=== PATIENT | male | born 1950 | race Caucasian/White ===

== ENCOUNTER → 2018-01-15 | Outpatient (CLI) | payer OTHER | LOC: FIMAGING 15:04 | PROVIDERS: ATTEND Nurse Practitioner | DX: R22.32 Localized swelling, mass and lump, left upper limb (principal); M79.632 Pain in left forearm; C90.01 Multiple myeloma in remission ==

== ENCOUNTER 2018-04-18 13:09 | Inpatient (IN) | payer OTHER ==
--- NOTE | 2018-04-18 13:19 | EDPHY ---
H & P Time Seen by Provider: 04/18/18 13:14 HPI/ROS: Chief complaint. Difficulty breathing HPI. 67-year-old male presents emergency department with fever chills and shortness of breath. He had chemo therapy about 1 week ago for multiple myeloma and at that time had tachycardia and low pulse oximetry. For the last several days he has had productive cough. Fever today to 102 degrees. Some shortness of breath. He lives alone and denies exposure to Infectious Disease. No chest discomfort. No abdominal pain. No unusual leg pain or swelling. No urinary symptoms ROS 10 systems were reviewed and negative with the exception of the elements mentioned in the history of present illness Past Medical/Surgical History: Multiple myeloma Social History: , lives alone, nonsmoker, no alcohol Smoking Status: Never smoked Physical Exam: General Appearance: Alert well-developed male mild distress vital signs show temp 37.5 degrees Eyes: Pupils equal and round no pallor or injection. ENT, pharynx injected without exudate Respiratory: No retractions. Mild inspiratory expiratory rhonchi Cardiovascular: Regular rate and rhythm. Gastrointestinal: Abdomen is soft and nontender, no masses, bowel sounds normal. Neurological: Awake and alert, sensory and motor exams grossly normal. Skin: Warm and dry, no rashes. Musculoskeletal: Neck is supple nontender. Extremities symmetrical, full range of motion. Psychiatric: Patient is oriented X 3, there is no agitation. Constitutional: Initial Vital Signs Temperature (C) 37.5 C 04/18/18 13:19 Heart Rate 92 04/18/18 13:19 Respiratory Rate 20 04/18/18 13:19 Blood Pressure 129/70 H 04/18/18 13:19 O2 Sat (%) 93 04/18/18 13:19 O2 Delivery Mode Room Air Allergies/Adverse Reactions: No Known Allergies Allergy (Unverified 04/05/13 08:46) Home Medications: Medication Instructions Recorded Acyclovir [Zovirax] 200 mg PO HS 01/24/13 Ascorbic Acid [Vitamin C 500 mg 500 mg PO DAILY@119901/24/13 (OTC)] Calcium Carbonate/Vitamin D3 500 mg PO DAILY@119901/24/13 [Calcium 500 + D Tablet] Multivitamins [Tab-A-Rosangela] 1 each PO DAILY@119901/24/13 [place]-3 Fatty Acids [Fish Oil 1000 1,000 mg PO DAILY@119913 mg (OTC)] Pantoprazole Sodium [Protonix 40mg 40 mg PO DAILY 01/24/13 (RX)] Aspirin [Aspirin 81mg (OTC)] 81 mg PO DAILY 02/12/13 Acyclovir [Zovirax] 800 mg PO 5XD #35 tab 11/04/13 Carfilzomib 04/18/18 Medical Decision Making - Diagnostics EKG Interpretation: EKG interpreted by me shows normal sinus rhythm normal interval. Normal axis. No evidence of old inferior ND with Q-waves lead 3. Anterior T-wave changes. No significant ST elevation or depression. No arrhythmia. Rate is 83 Imaging Results: Chest x-ray somewhat difficult to read but I believe the patient has pneumonia. Consistent with clinical symptoms Procedures: IV normal saline. Septic workup ED Course/Re-evaluation: 2:50 p.m. patient's temperature now 39.5. Blood pressure 105/49. Patient receiving 2nd L of fluid. Current blood pressure 96/72. Patient and I discussed treatment plan including recommendation for admission. He expresses understanding and agreement I consulted discussed case with Dr. Hassan who agrees to the admission Differential Diagnosis: Patient likely has pneumonia. His lactate is normal. Because of the recent chemotherapy and multiple myeloma his white blood cell count is quite low. Plan is admission - Data Points Laboratory Results: Laboratory Results 04/18/18 13:37 04/18/18 13:37 04/18/18 04/18/18 04/18/18 14:16 14:03 14:03 WBC RBC Hgb Hct MCV MCH MCHC RDW Plt Count MPV Neut % (Auto) Lymph % (Auto) Wilson % (Auto) Eos % (Auto) Baso % (Auto) Nucleat RBC Rel Count Absolute Neuts (auto) Absolute Lymphs (auto) Absolute Monos (auto) Absolute Eos (auto) Absolute Basos (auto) Absolute Nucleated RBC Immature Gran % Seg Neutrophils % Band Neutrophils % Lymphocytes % Monocytes % Eosinophils % Basophils % Metamyelocytes % Myelocytes % Promyelocytes % Blast Cells % Immature Gran # Absolute Seg Neuts Absolute Band Neuts Absolute Lymphocytes Absolute Monocytes Absolute Eosinophils Absolute Basophils Absolute Metamyelocyte Absolute Myelocytes Absolute Promyelocytes Absolute Plasma Cells Nucleated RBCs Absolute Blast Cells Plasma Cells % Platelet Estimate Polychromasia Basophilic Stippling Oval Macrocytes Smear Review By PT INR APTT VBG Lactic Acid 1.4 mmol/L mmol/L (0.7-2.1) Sodium Potassium Chloride Carbon Dioxide Anion Gap BUN Creatinine Estimated GFR Glucose Calcium Total Bilirubin POC Troponin I 0.00 ng/mL ng/mL (0.00-0.08) Nasal Influenza A PCR NEGATIVE FOR FLU A (NEGATIVE) Nasal Influenza B PCR NEGATIVE FOR FLU B (NEGATIVE) 04/18/18 04/18/18 04/18/18 13:37 13:37 13:37 WBC 1.22 10^3/uL L 10^3/uL (3.80-9.50) RBC 2.64 10^6/uL L 10^6/uL (4.40-6.38) Hgb 9.4 g/dL L g/dL (13.7-17.5) Hct 29.2 % L % (40.0-51.0) MCV 110.6 fL H fL (81.5-99.8) MCH 35.6 pg H pg (27.9-34.1) MCHC 32.2 g/dL L g/dL (32.4-36.7) RDW 17.4 % H % (11.5-15.2) Plt Count 77 10^3/uL L 10^3/uL (150-400) MPV 11.6 fL fL (8.7-11.7) Neut % (Auto) Not Reported Lymph % (Auto) Not Reported Wilson % (Auto) Not Reported Eos % (Auto) Not Reported Baso % (Auto) Not Reported Nucleat RBC Rel Count Not Reported Absolute Neuts (auto) Not Reported Absolute Lymphs (auto) Not Reported Absolute Monos (auto) Not Reported Absolute Eos (auto) Not Reported Absolute Basos (auto) Not Reported Absolute Nucleated RBC Not Reported Immature Gran % Not Reported Seg Neutrophils % 17.9 % % Band Neutrophils % 44.2 % % Lymphocytes % 17.9 % % Monocytes % 7.4 % % Eosinophils % 7.4 % % Basophils % 3.1 % % Metamyelocytes % 2.1 % % Myelocytes % 0.0 % % Promyelocytes % 0.0 % % Blast Cells % 0.0 % % Immature Gran # Not Reported Absolute Seg Neuts 0.22 10^3/uL L 10^3/uL (1.70-6.50) Absolute Band Neuts 0.54 10^3/uL 10^3/uL (0.00-0.70) Absolute Lymphocytes 0.22 10^3/uL L 10^3/uL (1.00-3.00) Absolute Monocytes 0.09 10^3/uL L 10^3/uL (0.30-0.80) Absolute Eosinophils 0.09 10^3/uL 10^3/uL (0.03-0.40) Absolute Basophils 0.04 10^3/uL 10^3/uL (0.02-0.10) Absolute Metamyelocyte 0.03 10^3/mL H 10^3/mL (0.00-0.00) Absolute Myelocytes 0.00 10^3/mL 10^3/mL (0.00-0.00) Absolute Promyelocytes 0.00 10^3/uL 10^3/uL (0.00-0.00) Absolute Plasma Cells 0.00 10^3/uL 10^3/uL (0.00-0.00) Nucleated RBCs 0 /100 WBC /100 WBC (0-0) Absolute Blast Cells 0.00 10^3/uL 10^3/uL (0.00-0.00) Plasma Cells % 0.0 % % Platelet Estimate DECREASED L (ADEQ) Polychromasia 1+ H Basophilic Stippling 1+ H Oval Macrocytes 2+ H Smear Review By Pending PT 14.8 SEC SEC (12.0-15.0) INR 1.14 (0.83-1.16) APTT 26.6 SEC SEC (23.0-38.0) VBG Lactic Acid Sodium 136 mEq/L mEq/L (135-145) Potassium 4.3 mEq/L mEq/L (3.5-5.2) Chloride 106 mEq/L mEq/L (97-110) Carbon Dioxide 25 mEq/l mEq/l (22-31) Anion Gap 5 mEq/L L mEq/L (6-14) BUN 35 mg/dL H mg/dL (7-23) Creatinine 1.4 mg/dL H mg/dL (0.7-1.3) Estimated GFR 50 Glucose 94 mg/dL mg/dL (70-100) Calcium 8.3 mg/dL L mg/dL (8.5-10.4) Total Bilirubin 1.0 mg/dL mg/dL (0.1-1.4) POC Troponin I Nasal Influenza A PCR Nasal Influenza B PCR Medications Given: Discontinued Medications Sodium Chloride (Ns) 1,000 mls @ 0 mls/hr IV EDNOW ONE; Wide Open PRN Reason: Protocol Stop: 04/18/18 13:28 Last Admin: 04/18/18 14:45 Dose: 1,000 mls Point of Care Test Results: Chemistry 04/18/18 14:16 POC Troponin I 0.00 ng/mL ng/mL (0.00-0.08) Departure - Departure Disposition: [facility] Inpatient Acute Clinical Impression: Pneumonia Qualifiers: Pneumonia type: due to unspecified organism Laterality: bilateral Lung location : upper lobe of lung Qualified Code(s): J18.1 - Lobar pneumonia, unspecified organism Condition: Fair Referrals: Patient,NotPresent [Unknown] - As per Instructions
[2018-04-18] MEDS ORDERED: NS 1,000 ML IV ONE (13:27)
[2018-04-18 14:01] LABS: INR 1.14 (0.83-1.16); PROTIME(PATIENT) 14.8 SEC (12.0-15.0)
[2018-04-18] MEDS ORDERED: NS 1,900 ML IV ONE (14:51)
[2018-04-18 14:54] LABS: PLATELET COUNT 77 10^3/uL (150-400)
[2018-04-18] MEDS ORDERED: ACETAMINOPHEN 500 MG TAB PO ONE (15:28)
[2018-04-18] MEDS ORDERED: ONDANSETRON 4 MG/2 ML VIAL IVP PRN (15:38)
[2018-04-18] MEDS ORDERED: ONDANSETRON DISINTEGRATING 4 MG TAB PO PRN (15:38)
[2018-04-18] MEDS ORDERED: ALBUTEROL 3 ML DEYVIAL IH PRN (15:38)
--- NOTE | 2018-04-18 15:50 | PDGENHP ---
History and Physical - Chief Complaint cough, fever, SOB - History of Present Illness 67 yo male with h/o multiple myeloma, followed by Dr. Guillory, presents to ED with cough, SOB and fever. He began to feel poorly 2 days ago with development and cough and dyspnea. He became more fatigued with low grade fevers. Today, he developed temp of 39.2 with chills and came to the ED. He last received chemo 1 week ago, on Carfilzamib and Revlimid. He endorses weight loss and poor appetite. He denies difficulty swallowing. No CP or pressure. No abdominal pain, N/V/D or changes in bowel or bladder habits. In the ED, he is febrile, but normotensive. He is neutropenic. CXR shows RLL infiltrate. He received a NS fluid bolus and blood cultures were drawn. Antibiotics are started and he will be admitted to SDU for further management. History Information - Allergies/Home Medication List Allergies/Adverse Reactions: No Known Allergies Allergy (Verified 04/18/18 15:31) Home Medications: Acyclovir [Zovirax] 200 mg PO DAILY 01/24/13 [Last Taken 04/18/18] Ascorbic Acid [Vitamin C 500 mg (OTC)] 500 mg PO DAILY@1200 01/24/13 [Last Taken 04/18/18] Calcium Carbonate/Vitamin D3 [Calcium 500 + D Tablet] 500 mg PO DAILY@1200 01/24 [Last Taken 04/18/18] Multivitamins [Tab-A-Rosangela] 1 each PO DAILY@1200 01/24/13 [Last Taken 04/18/18] [place]-3 Fatty Acids [Fish Oil 1000 mg (OTC)] 1,000 mg PO DAILY@1200 01/24/13 [ Last Taken 04/18/18] Pantoprazole Sodium [Protonix 40mg (RX)] 40 mg PO DAILY 01/24/13 [Last Taken ] Aspirin EC [Aspirin EC 325 mg (*)] 325 mg PO DAILY 04/18/18 [Last Taken 04/18/18 ] Carfilzomib IV Q7D 04/18/18 [Last Taken 04/11/18] Dexamethasone [Decadron 4 MG (*)] 20 mg PO Q7D 04/18/18 [Last Taken 04/11/18] Lenalidomide [Revlimid] 25 mg PO AD 04/18/18 [Last Taken 04/18/18] I have personally reviewed and updated: family history, medical history, social history, surgical history - Past Medical History COPD Additional medical history: Multiple myeloma diagnosed 2007, followed by Dr. Guillory. Osteoporosis, severe kyphosis. Compression fractures - Surgical History Reports: no pertinent surgical hx - Family History Positive for: non-pertinent - Social History Smoking Status: Never smoked Alcohol Use: None Drug Use: None Additional social history: Lives alone, independent Review of Systems Review of Systems: ROS: 10pt was reviewed & negative except for what was stated in HPI & below Physical Exam Physical Exam: Temp Pulse Resp BP Pulse Ox 39.4 C H 100 20 105/49 L 89 L 04/18/18 14:00 04/18/18 14:00 04/18/18 14:00 04/18/18 14:00 04/18/18 14:00 Constitutional: no apparent distress Eyes: PERRL Ears, Nose, Mouth, Throat: moist mucous membranes Cardiovascular: tachycardia Respiratory: no respiratory distress, reduced air movement, inspiratory crackles Gastrointestinal: normoactive bowel sounds, soft, non-tender abdomen Skin: warm Musculoskeletal: generalized weakness, other (severe kyphosis) Neurologic: AAOx3 Psychiatric: interacting appropriately Lab Data & Imaging Review 04/18/18 13:37 04/18/18 19:25 WBC 1.22 10^3/uL (3.80-9.50) L 04/18/18 13:37 RBC 2.64 10^6/uL (4.40-6.38) L 04/18/18 13:37 Hgb 9.4 g/dL (13.7-17.5) L 04/18/18 13:37 Hct 29.2 % (40.0-51.0) L 04/18/18 13:37 MCV 110.6 fL (81.5-99.8) H 04/18/18 13:37 MCH 35.6 pg (27.9-34.1) H 04/18/18 13:37 MCHC 32.2 g/dL (32.4-36.7) L 04/18/18 13:37 RDW 17.4 % (11.5-15.2) H 04/18/18 13:37 Plt Count 77 10^3/uL (150-400) L 04/18/18 13:37 MPV 11.6 fL (8.7-11.7) 04/18/18 13:37 Neut % (Auto) Not Reported 04/18/18 13:37 Lymph % (Auto) Not Reported 04/18/18 13:37 [place] % (Auto) Not Reported 04/18/18 13:37 Eos % (Auto) Not Reported 04/18/18 13:37 Baso % (Auto) Not Reported 04/18/18 13:37 Nucleat RBC Rel Count Not Reported 04/18/18 13:37 Absolute Neuts (auto) Not Reported 04/18/18 13:37 Absolute Lymphs (auto) Not Reported 04/18/18 13:37 Absolute Monos (auto) Not Reported 04/18/18 13:37 Absolute Eos (auto) Not Reported 04/18/18 13:37 Absolute Basos (auto) Not Reported 04/18/18 13:37 Absolute Nucleated RBC Not Reported 04/18/18 13:37 Immature Gran % Not Reported 04/18/18 13:37 Seg Neutrophils % 17.9 % 04/18/18 13:37 Band Neutrophils % 44.2 % 04/18/18 13:37 Lymphocytes % 17.9 % 04/18/18 13:37 Monocytes % 7.4 % 04/18/18 13:37 Eosinophils % 7.4 % 04/18/18 13:37 Basophils % 3.1 % 04/18/18 13:37 Metamyelocytes % 2.1 % 04/18/18 13:37 Myelocytes % 0.0 % 04/18/18 13:37 Promyelocytes % 0.0 % 04/18/18 13:37 Blast Cells % 0.0 % 04/18/18 13:37 Immature Gran # Not Reported 04/18/18 13:37 Absolute Seg Neuts 0.22 10^3/uL (1.70-6.50) L 04/18/18 13:37 Absolute Band Neuts 0.54 10^3/uL (0.00-0.70) 04/18/18 13:37 Absolute Lymphocytes 0.22 10^3/uL (1.00-3.00) L 04/18/18 13:37 Absolute Monocytes 0.09 10^3/uL (0.30-0.80) L 04/18/18 13:37 Absolute Eosinophils 0.09 10^3/uL (0.03-0.40) 04/18/18 13:37 Absolute Basophils 0.04 10^3/uL (0.02-0.10) 04/18/18 13:37 Absolute Metamyelocyte 0.03 10^3/mL (0.00-0.00) H 04/18/18 13:37 Absolute Myelocytes 0.00 10^3/mL (0.00-0.00) 04/18/18 13:37 Absolute Promyelocytes 0.00 10^3/uL (0.00-0.00) 04/18/18 13:37 Absolute Plasma Cells 0.00 10^3/uL (0.00-0.00) 04/18/18 13:37 Nucleated RBCs 0 /100 WBC (0-0) 04/18/18 13:37 Absolute Blast Cells 0.00 10^3/uL (0.00-0.00) 04/18/18 13:37 Plasma Cells % 0.0 % 04/18/18 13:37 Platelet Estimate DECREASED (ADEQ) L 04/18/18 13:37 Polychromasia 1+ H 04/18/18 13:37 Basophilic Stippling 1+ H 04/18/18 13:37 Oval Macrocytes 2+ H 04/18/18 13:37 PT 14.8 SEC (12.0-15.0) 04/18/18 13:37 INR 1.14 (0.83-1.16) 04/18/18 13:37 APTT 26.6 SEC (23.0-38.0) 04/18/18 13:37 VBG Lactic Acid 1.4 mmol/L (0.7-2.1) 04/18/18 14:03 Sodium 136 mEq/L (135-145) 04/18/18 13:37 Potassium 4.3 mEq/L (3.5-5.2) 04/18/18 13:37 Chloride 106 mEq/L (97-110) 04/18/18 13:37 Carbon Dioxide 25 mEq/l (22-31) 04/18/18 13:37 Anion Gap 5 mEq/L (6-14) L 04/18/18 13:37 BUN 35 mg/dL (7-23) H 04/18/18 13:37 Creatinine 1.4 mg/dL (0.7-1.3) H 04/18/18 13:37 Estimated GFR 50 04/18/18 13:37 Glucose 94 mg/dL (70-100) 04/18/18 13:37 Calcium 8.3 mg/dL (8.5-10.4) L 04/18/18 13:37 Total Bilirubin 1.0 mg/dL (0.1-1.4) 04/18/18 13:37 POC Troponin I 0.00 ng/mL (0.00-0.08) 04/18/18 14:16 Nasal Influenza A PCR NEGATIVE FOR FLU A (NEGATIVE) 04/18/18 14:03 Nasal Influenza B PCR NEGATIVE FOR FLU B (NEGATIVE) 04/18/18 14:03 Visualized and Interpreted Chest x-ray results: Yes Chest X-Ray results: infiltrate, other (severe kyphosis) Assessment & Plan Assessment: Severe sepsis 2/2 RLL Pneumonia --> Septic shock (Temp, HR, neutropenia, low plts. hypotension) He is neutropenic, immunocompromised and at risk for aspiration given severe kyphosis. Update: SBP dropped to 80's after IV fluid bolus. -Central line will be placed by bladder trimmer, monitor CVP -Initiate Levophed, keep MAP >65 -cont IVF's -Cefepime, Azithro, add Flagyl due to some concern for aspiration with severe kyphosis -speech / swallow eval planned -BCx's pending -Send sputum Cx and Resp viral panel -duonebs / prn albuterol nebs, RT support Multiple myeloma - diagnosed in 2007, has had multiple courses of chemo. His last chemo was 1 week ago, followed by Dr. Guillory -hold chemo and dex -notified Dr. Boateng of admission, he will see Pancytopenia - 2/2 chemo. ANC 694. No indication for transfusion currently. -follow daily cbc CHANDRIKA - likely pre-renal in setting of acute illness and poor oral intake -follow after aggressive hydration Severe osteoporosis / kyphosis with old compression fractures -cont Calc/vit D, pain control DNR Dispo - admit to inpt, anticipate >48 hrs hospitalization for management of severe sepsis and PNA 45 min crit care
[2018-04-18] MEDS ORDERED: CEFEPIME HCL 2 GM in NS 100 ML IV ONE (16:00)
[2018-04-18] MEDS: AZITHROMYCIN IV 500 MG in NS 250 ML IV SCH (17:34)
[2018-04-18] MEDS: NS W/ 20 KCl/L 1,000 ML IV SCH (17:35)
[2018-04-18] MEDS ORDERED: NOREPINEPHRINE BITARTRATE 16 MG in NS 250 ML IV SCH (18:00)
[2018-04-18] MEDS ORDERED: NOREPINEPHRINE BITARTRATE 4 MG in NS 500 ML IV SCH (18:30)
[2018-04-18] MEDS: IPRATROPIUM/ALBUTEROL 3 ML DEYVIAL IH SCH ×2 (18:30→20:51)
[2018-04-18] MEDS ORDERED: fentaNYL 100 MCG/2 ML INJ ONE (18:37)
--- NOTE | 2018-04-18 18:39 | PDCONSULT ---
Location Worker Note: ASSESSMENT 67-year-old male admitted with acute hypoxemic respiratory failure and septic shock as well as right middle lobe pneumonia in the setting of parainfluenza virus and neutropenia # septic shock. Presumed source lung given right middle lobe infiltrate impair influenza PCR # neutropenic fever # acute hypoxemic respiratory failure # CHANDRIKA # community-acquired pneumonia-right middle lobe # multiple myeloma. Followed by Dr. Guillory. On Carfilzomib and Revlimid as outpatient. Last dose approximately 2 weeks prior to admission # GERD PLAN # place central line for vasopressor administration # initiate norepinephrine # if still requiring vasopressors after 10 mics per minute add vasopressin 0.04 units and hydrocortisone 50 mg Q 6 hrs # broad-spectrum antibiotics, may narrow tomorrow # oral PPI for GERD # Feeding - sips and chips # Analgesia APAP, fentanyl # Sedation propofol # Thromboprophylaxis - SQ hep # Head of bed elevated # Ulcer prophylaxis - not indicated # Glucose SSI # Skin no skin breakdown # Delirium - delirium precautions Patient is critical ill due to life threatening organ dysfunction and is at high risk for decompensation and . Total critical care time, excluding procedures: 95 min ABX EVENTS 04/18/2018 subclavian central venous catheter placed CX Data 04/18/2018 respiratory viral panel positive for parainfluenza virus, blood cultures pending IMAGING 04/18/2018 chest x-ray right middle lobe infiltrate obscuring right heart border Consult I was asked by Dr. Alka Hassan of [facility] to evaluate this patient for ICU care in the setting of severe sepsis, respiratory failure and hypotension Chief complaint Cough, fever, shortness of breath HPI She is a very pleasant 67-year-old male with a history of multiple myeloma followed by Dr. Guillory who presented to the emergency department with cough, fever, dyspnea exertion and progressive shortness of breath. He initially felt ill 48 prior 48 hr prior to presentation with cough and dyspnea. He gradually progressed. He developed a temperature of 39 degrees with rigors as well as increasing malaise and anorexia Last chemotherapy dose was 2 weeks prior with Carfilzomib and Revlimid. Patient denies chest pain, leg swelling, new rash, abdominal pain, nausea, vomiting. Emergency department he was found to be febrile in borderline hypotensive. He was found to be neutropenic. Chest x- ray demonstrated right lower lobe infiltrate. Patient received normal saline bolus blood cultures and respiratory viral PCR was performed. He was subsequently admitted after being started on IV antibiotics Medication Dexamethasone 20 mg every 7 days attempt chemotherapy, Revlimid, protonix 40 qday, aspirin 325, carfilzomib, acyclovir Allergies no known drug allergy Past medical history Multiple myeloma diagnosed in 2007, osteoporosis, severe kyphoscoliosis, COPD, frailty Family history No family history of severe respiratory failure and septic shock requiring [facility] at [facility] Social history prior smoker. Lives alone in [place]. Review of systems A comprehensive 10 point review of systems was obtained is negative except as per HPI Physical exam Temperature 38 degrees, pulse 118, blood pressure 87/40 to respiratory rate 24 95% on 6 L nasal cannula GEN: Mild respiratory distress lying in bed NEURO: A&Ox3, CN 2-12 GI HEENT: PERRL, EOMI, MMM, OP clear NECK: supple, trachea midline CHEST protuberant chest bone. Kyphoscoliosis appreciated CVS: rrr no m/r/g PULM: Mild bilateral rales ABD: soft, NT, ND, NABS EXT: no swelling, no cyanosis, full ROM SKIN: warm, dry, intact, no rash PSYCH CAM negative, appropriate affect Labs Reviewed WBC 1.2 absolute segment neutrophils 220, absolute band neutrophils 540 Serum creatinine 1.4, potassium 4.3 Procalcitonin 0.09
[2018-04-18] MEDS ORDERED: NS 500 ML IV ONE (19:00)
[2018-04-18] MEDS ORDERED: fentaNYL 100 MCG/2 ML INJ IVP ONE (19:00)
--- NOTE | 2018-04-18 19:26 | SUROPNOTE ---
[facility] Operative Report - Surgery Central Line Insertion Procedure: Left Subclavian CVC placement Attending Physician: Dr. Justine Baum Anesthesiologist: N/A Anesthesia Type: N/A Indication: vascular access and need for vasopressors Consent: the patient was counseled as to the risks, benefits, and alternatives to the procedure and they agreed to proceed. Signed consent was obtained and placed into chart. Time-Out: prior to the procedure, time-out was performed to verify patient's name, date of , correct procedure, correct side, correct site, correct patient position, correct radiographic data, and special equipment required. Pre-Op Dx: hypotension-presumed sepsis Post-Op Dx: hypotension-presumed sepsis Medications: none Description: Hand hygiene was performed. Pt was positioned supine and landmarks were identified. Skin above the left clavicle and left chest were prepped with Chloraprep (with time allowed to dry) prior to catheter insertion and with maximal sterile precautions (including gown, sterile gloves, mask, cap , and large sterile draping). The site was locally anesthetized with lidocaine 1% (2 ml). Using landmarks the left subclavian vein was accessed with the finder needle -> passage of guidewire -> passage of guidewire -> passage of dilator -> passage of CVC over guidewire. Return of venous blood from all ports , catheter was flushed. Catheter was sutured in place with silk suture and dressed with sterile dressing. Chest x-ray ordered and pending at time of no EBL: 0 ml Complications: none Specimens Sent: none Implants: N/A F/U: routine CVC care Justine Baum MD
--- NOTE | 2018-04-18 20:47 | CPEKG ---
Test Reason : OPEN Blood Pressure : / mmHG Vent. Rate : 083 BPM Atrial Rate : 084 BPM P-R Int : 171 ms QRS Dur : 109 ms QT Int : 385 ms P-R-T Axes : 050 023 015 degrees QTc Int : 453 ms Sinus rhythm Inferior infarct, old Confirmed by Flavio Adan ([id number]) on 04/18/2018 8:46:28 PM Referred By: Flavio Adan Confirmed By:Flavio Adan
[2018-04-19] MEDS: NS W/ 20 KCl/L 1,000 ML IV SCH (03:51)
[2018-04-19] MEDS: CEFEPIME HCL 2 GM in NS 100 ML IV SCH ×2 (03:51→16:21)
[2018-04-19 04:18] LABS: PLATELET COUNT 72 10^3/uL (150-400)
[2018-04-19] MEDS: IPRATROPIUM/ALBUTEROL 3 ML DEYVIAL IH SCH ×4 (05:37→20:34)
[2018-04-19] MEDS: AZITHROMYCIN IV 500 MG in NS 250 ML IV SCH (08:45)
[2018-04-19] MEDS: PANTOPRAZOLE SODIUM 40 MG TAB PO SCH (08:46)
[2018-04-19] MEDS ORDERED: ACYCLOVIR 400 MG TAB PO SCH (09:00)
--- NOTE | 2018-04-19 09:32 | PDMN ---
Medical Necessity Medical necessity: Pt meets inpt criteria per MD order and MCG M-160, Sepsis and Other Febrile Illness, without Focal Infection, A-3 days. 67 y/o w/hx of mult myeloma admitted w/severe sepsis/septic shock sec to pneumonia, fever 102.9 , tachycardia w/HR in 100's, WBC's .83, neutropenic and immunocompromised, at risk of aspiration due to severe kyphosis, required central line placement, SDU care, est LOS>2MN for management of severe sepsis and pna.
--- NOTE | 2018-04-19 10:29 | PDINTPN ---
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 Resolved. Presumed source lung given right middle lobe infiltrate and parainfluenza PCR # neutropenic fever # acute hypoxemic respiratory failure # CHANDRIKA # community-acquired pneumonia-right middle lobe # parainfluenza infection # multiple myeloma. Followed by Dr. Guillory. On Carfilzomib and Revlimid as outpatient. Last dose approximately 2 weeks prior to admission # GERD PLAN # stop flagyl # stop maintenance IVF # start hep 5000 q 12 # downgrade if remains compensated # oral PPI for GERD # Feeding - reg dieg # Analgesia APAP, # Sedation none # Thromboprophylaxis - SQ hep # Head of bed elevated # Ulcer prophylaxis - not indicated # Glucose SSI # Skin no skin breakdown # Delirium - delirium precautions EVENTS 04/18/2018 subclavian central venous catheter placed CX Data 04/18/2018 respiratory viral panel positive for parainfluenza virus, blood cultures pending IMAGING I personally reviewed radiographic images well as formal radiology reads 04/18/2018 chest x-ray right middle lobe infiltrate obscuring right heart border Subjective: Transfer to from floor to ICU with severe septic shock. Central line placed for norepinephrine administration. Max dose yesterday 8 micrograms/minute. Patient feeling better today still short of breath. Denies worsening headaches , chest pain, leg swelling. Objective: Vital Signs Temp Pulse Resp BP Pulse Ox 36.9 C 90 26 H 117/51 L 93 04/19/18 08:00 04/19/18 09:42 04/19/18 09:42 04/19/18 09:00 04/19/18 09:42 Microbiology 04/18/18 16:12 Respiratory Panel (PCR) - Final Nasal, Sinus - Anaerobic Tube/Swab Parainfluenza Virus Type 3 Laboratory Results 04/19/18 03:50 04/19/18 03:50 04/18/18 04/19/18 04/20/18 05:59 05:59 05:59 Intake Total 4930 Output Total 1775 Balance 3155 PT 14.8 SEC (12.0-15.0) 04/18/18 13:37 INR 1.14 (0.83-1.16) 04/18/18 13:37 Physical Exam - Physical Exam General Appearance: alert, no apparent distress EENT: PERRL/EOMI, normal ENT inspection Neck: non-tender, full range of motion Respiratory: other (Tachypneic oxygen mask in place) Cardiac/Chest: normal peripheral pulses, regular rate, rhythm, other (Severe kyphoscoliosis with protuberant chest bone), No edema Abdomen: normal bowel sounds, non-tender Back: Normal inspection, No CVA tenderness Skin: normal color, warm/dry Extremities: normal range of motion, non-tender Neuro/Psych: no motor/sensory deficits, alert, normal mood/affect ICD10 Worksheet Patient Problems: Problems Problem Status Onset Pneumonia Acute Inguinal hernia Acute
[2018-04-19] MEDS: CALCIUM CARB W/VIT D 500 MG TAB PO SCH (11:24)
[2018-04-19] MEDS: ASCORBIC ACID 500 MG TAB PO SCH (11:25)
[2018-04-19] MEDS: HEPARIN 5,000 UNIT/0.5 ML INJ SC SCH ×2 (11:34→21:04)
--- NOTE | 2018-04-19 13:33 | ASMTCMCOM ---
CM Note CM Note Notes: Pt is a 67 yo M, usually lives alone and independently, Pt is DNR. Pt has history of multiple myeloma, diagnosed in 2007. Followed by Dr. Guillory. Pt presents with fevers and chills. Pt was started on antibiotics. Discharge needs TBD, CM to follow. Plan: TBD Date Signed: 04/19/2018 01:33 PM Electronically Signed By:EVELINA Stephens
--- NOTE | 2018-04-19 14:10 | GCON ---
[f rep st] CONSULTATION ONCOLOGY CONSULTATION DATE OF CONSULTATION: 04/19/2018 REASON FOR CONSULTATION: 1. Multiple myeloma. 2. Probable viral pneumonia. HISTORY OF PRESENT ILLNESS: The patient is a pleasant 67-year-old gentleman with a diagnosis of mult iple myeloma who is followed by my partner, Dr. Guillory. He was diagnosed in September of 2007 and has been on multiple prior lines of therapy including Revlimid/dexamethasone, cyclophosphamide/bortezomib/dex amethasone, bortezomib/Doxil, pomalidomide, pembrolizumab and ACP-196, daratumumab, and most recently carfilzomib, Revlimid, and dexamethasone which was started in October of last year. The patient has had some trouble tolerating carfilzomib. He was recently taken off dexamethasone. He reports an approximate 2-3 week history of intermittent fevers, chills, cough, and dyspnea. He pr esented to the emergency room last evening with a temperature of 39.2. A chest x-ray done in the ER revealed a right lower lobe pneumonia. Nasal swab was positive for parainfluenza virus. The patient was hypotensive and was admitted to the step-down unit in the ICU. He is doing somewhat better toda y, though continues to have intermittent fevers and chills. Admission blood work reveals neutropenia related to recent therapy. PAST MEDICAL HISTORY: 1. Hypothyroidism. 2. History of recurrent genital herpes. PAST SURGICAL HISTORY: 1. History of kyphoplasty. 2. Left knee surgery, 1977. 3. Sinus surgery, 1991. FAMILY HISTORY: Noncontributory. SOCIAL HISTORY: The patient is . He is a retired computer application developer. He has volunteered [email or web address] or the [employer]. He does not use alcohol. He is a nonsmoker. He lives locally in [place]. REVIEW OF SYSTEMS: As outlined above. Remainder 12-point review of systems otherwise negative. PHYSICAL EXAM: GENERAL: A somewhat frail-appearing, elderly gentleman lying in bed, in no acute dis tress. EYES: Pupils equal. Sclerae nonicteric. NECK: No palpable submandibular, cervical, or sup raclavicular adenopathy. HEART: Regular without murmur. LUNGS: Reveal crackles at both bases. No flank tenderness. ABDOMEN: Soft, nontender, nondistended with no organomegaly or mass. SKIN: No visible skin rash. NEUROLOGIC: The patient is alert, oriented, and appropriate. IMAGING STUDIES: Chest x-ray: Results as outlined above. LABORATORY STUDIES: CBC from today: White count 0.83, hemoglobin 7.8, hematocrit 24.6, platelet cou nt 72,000, absolute neutrophil count today is 400. Sodium 136, potassium 4.3, chloride 114, bicarb 2 1, BUN 22, creatinine 1.1, calcium 7.0. Respiratory panel by PCR is positive for parainfluenza virus type 3. IMPRESSION: 1. Multiple myeloma (patient recently on carfilzomib, Revlimid, and dexamethasone). 2. Parainfluenza viral pneumoniae. 3. Right lower lobe infiltrate suggesting possible superimposed bacterial pneumonia. 4. Therapy-induced pancytopenia with neutropenia. The patient is a pleasant 67-year-old gentleman who was admitted to the intensive care step-down unit at [facility] with a parainfluenza viral pneumonia. He is doing somewhat better sin ce hospital admission. Given that his chest x-ray demonstrates a right lower lobe infiltrate and given that he remains signi ficantly neutropenic in a critical care setting, I think it is reasonable to start him on G-CSF suppo rt with Zarxio given at a dose of 300 mcg daily for 5 days. While neutrophils are generally not invo lved in clearance of viral infections, certainly this may help to prevent superimposed pneumonia, and I favor giving this in light of the significant degree of neutropenia and the fact that the patient has an infiltrate involving the right lower lobe on chest x-ray. This was discussed with the patient. I will send quantitative immunoglobulins and if significantly low, we could consider IVIG therapy if he does not continue to improve from a clinical standpoint. The patient's therapy will continue to be held. I will notify Dr. Guillory of his admission. Our service will continue to follow him during his hospital stay. The Critical Care Service has plac ed him on azithromycin, which seems reasonable given his chest x-ray findings. Plan was discussed with the patient. His questions were answered. Total time for today's visit was approximately 45 minutes of which greater than 50% was spent in coun seling and care coordination. /[id number]/MODL
[2018-04-19] MEDS: ACETAMINOPHEN 325 MG TAB PO PRN (15:28)
[2018-04-19] MEDS: FILGRASTIM-SNDZ 300 MCG/0.5 ML SYR SC SCH (15:28)
--- NOTE | 2018-04-19 15:43 | HOSPPROG ---
Hospitalist Progress Note Assessment/Plan: 67 yo M w multiple myeloma here w febrile neutropenia, adenovirus and RLL pneumonia RLL pneumonia: agree w cefepime and azithro adenovirus: supportive care febrile neutropenia: gcsf started code: dnr sepsis" infection, source, elevated lactate off pressors this AM dispo: inpt, icu Subjective: case d/w dr ojeda. febrile Objective: Vital Signs Temp Pulse Resp BP Pulse Ox 39.5 C H 78 39 H 103/67 97 04/19/18 15:00 04/19/18 15:00 04/19/18 15:00 04/19/18 15:00 04/19/18 15:00 Microbiology 04/19/18 10:00 - Final Sputum, Expectorated 04/18/18 16:12 Respiratory Panel (PCR) - Final Nasal, Sinus - Anaerobic Tube/Swab Parainfluenza Virus Type 3 Laboratory Results 04/19/18 03:50 04/19/18 03:50 04/18/18 04/19/18 04/20/18 05:59 05:59 05:59 Intake Total 4930 Output Total 1775 Balance 3155 PT 14.8 SEC (12.0-15.0) 04/18/18 13:37 INR 1.14 (0.83-1.16) 04/18/18 13:37 - Physical Exam Constitutional: no apparent distress, chronically ill appearing Eyes: PERRL, anicteric sclera Ears, Nose, Mouth, Throat: moist mucous membranes, hearing normal Cardiovascular: regular rate and rhythym, no murmur, rub, or gallop Respiratory: other (rhoncorous anterolat) Gastrointestinal: normoactive bowel sounds, soft, non-tender abdomen Genitourinary: no bladder fullness, No sevilla in urethra Skin: warm, normal color Musculoskeletal: full muscle strength, no muscle tenderness Neurologic: AAOx3 Psychiatric: interacting appropriately ICD10 Worksheet Patient Problems: Problems Problem Status Onset Pneumonia Acute Inguinal hernia Acute
[2018-04-20] MEDS: CEFEPIME HCL 2 GM in NS 100 ML IV SCH ×2 (04:50→16:56)
[2018-04-20] MEDS: IPRATROPIUM/ALBUTEROL 3 ML DEYVIAL IH SCH ×5 (04:52→21:38)
[2018-04-20 05:15] LABS: PLATELET COUNT 91 10^3/uL (150-400)
[2018-04-20] MEDS: PANTOPRAZOLE SODIUM 40 MG TAB PO SCH (10:47)
[2018-04-20] MEDS: ASCORBIC ACID 500 MG TAB PO SCH (10:47)
[2018-04-20] MEDS: CALCIUM CARB W/VIT D 500 MG TAB PO SCH (10:48)
[2018-04-20] MEDS: HEPARIN 5,000 UNIT/0.5 ML INJ SC SCH ×2 (10:48→20:46)
[2018-04-20] MEDS: ACYCLOVIR 200 MG CAP PO SCH (10:48)
[2018-04-20] MEDS: AZITHROMYCIN IV 500 MG in NS 250 ML IV SCH (10:49)
--- NOTE | 2018-04-20 12:24 | PDINTPN ---
Demand Planning Analyst Progress Note Assessment/Plan: ASSESSMENT 67-year-old male admitted with acute hypoxemic respiratory failure and septic shock as well as right middle lobe pneumonia in the setting of parainfluenza virus and neutropenia # septic shock. Resolved. Presumed source lung given right middle lobe infiltrate and parainfluenza PCR # neutropenic fever # acute hypoxemic respiratory failure # CHANDRIKA # community-acquired pneumonia-right middle lobe # parainfluenza infection # multiple myeloma. Followed by Dr. Guillory. On Carfilzomib and Revlimid as outpatient. Last dose approximately 2 weeks prior to admission # GERD PLAN # stop flagyl # stop vanc # ANC recovered 04/20/18. Afebrile since 04/19/18 # stop cefepime end of 04/21/18 if cultures remain negative, afebrile and counts continue to trend up # complete 5 days of total abx for cap with CTX or augmentin if discharged # start hep 5000 q 12 # oral PPI for GERD # Feeding - reg dieg # downgrade # Analgesia APAP, # Sedation none # Thromboprophylaxis - SQ hep # Head of bed elevated # Ulcer prophylaxis - not indicated # Glucose SSI # Skin no skin breakdown # Delirium - delirium precautions EVENTS 04/18/2018 subclavian central venous catheter placed CX Data 04/18/2018 respiratory viral panel positive for parainfluenza virus, blood cultures pending IMAGING I personally reviewed radiographic images well as formal radiology reads 04/18/2018 chest x-ray right middle lobe infiltrate obscuring right heart border 04/20/18 12:26 Subjective: Interval improvement in shortness of breath and blood pressure. Patient states he feels much better today. Denies chest pain, fevers, chills, worsening cough , leg swelling, nausea, vomiting. Objective: Vital Signs Temp Pulse Resp BP Pulse Ox 36.9 C 81 25 H 109/59 L 96 04/20/18 07:54 04/20/18 11:30 04/20/18 11:30 04/20/18 07:54 04/20/18 11:30 Microbiology 04/19/18 10:00 - Final Sputum, Expectorated Laboratory Results 04/20/18 04:50 04/20/18 04:50 04/19/18 04/20/18 04/21/18 05:59 05:59 05:59 Intake Total 4930 2080 450 Output Total 1775 2500 450 Balance 3155 -420 0 PT 14.8 SEC (12.0-15.0) 04/18/18 13:37 INR 1.14 (0.83-1.16) 04/18/18 13:37 Physical Exam - Physical Exam General Appearance: alert, no apparent distress EENT: PERRL/EOMI, normal ENT inspection Neck: non-tender, supple, normal inspection Respiratory: chest non-tender, lungs clear, normal breath sounds Cardiac/Chest: normal peripheral pulses, regular rate, rhythm, edema Abdomen: normal bowel sounds, non-tender, soft Rectal: deferred Back: Other (Severe kyphoscoliosis, no lesions) Skin: normal color, warm/dry, cyanosis Extremities: normal range of motion, non-tender, normal inspection Neuro/Psych: no motor/sensory deficits, alert, normal mood/affect, oriented x 3 ICD10 Worksheet Patient Problems: Problems Problem Status Onset Pneumonia Acute Inguinal hernia Acute
--- NOTE | 2018-04-20 14:48 | SOAPPROG ---
SOAP Progress Note Assessment/Plan: Assessment: - parainfluenza pneumonia - patient is improving. He transfered out of the ICU to today. - refractory multiple myeloma - he feels he is tolerating his current regimen ( carfilzimib) poorly. - neutropenia - resolving Plan: - continue current rx - discuss with Dr. Guillory possible change/adjustment of therapy as an outpatient. Subjective: Fatigued. Feels better in general. Less lightheaded. Less dyspnea. Objective: Vital Signs Temp Pulse Resp BP Pulse Ox 36.8 C 84 14 100/57 L 95 04/20/18 14:06 04/20/18 12:27 04/20/18 12:27 04/20/18 12:27 04/20/18 12:27 Microbiology 04/19/18 10:00 - Final Sputum, Expectorated Laboratory Results 04/20/18 04:50 04/20/18 04:50 04/18/18 04/19/18 04/20/18 23:59 23:59 23:59 Intake Total 2320 4190 950 Output Total 975 2700 1050 Balance 1345 1490 -100 PT 14.8 SEC (12.0-15.0) 04/18/18 13:37 INR 1.14 (0.83-1.16) 04/18/18 13:37 Physical Exam - Physical Exam General Appearance: alert, moderate distress Respiratory: crackles, rales, rhonchi (R>L) Cardiac/Chest: regular rate, rhythm Skin: pallor Neuro/Psych: alert, oriented x 3 ICD10 Worksheet Patient Problems: Problems Problem Status Onset Pneumonia Acute Inguinal hernia Acute
[2018-04-20] MEDS: FILGRASTIM-SNDZ 300 MCG/0.5 ML SYR SC SCH (15:23)
--- NOTE | 2018-04-20 15:26 | HOSPPROG ---
Hospitalist Progress Note Assessment/Plan: 67 yo M w multiple myeloma here w febrile neutropenia, adenovirus and RLL pneumonia RLL pneumonia: agree w cefepime and azithro dc cefepime 04/21 if no cx data parainfluenza virus: supportive care MM: tolerating current therapy poorly per onc febrile neutropenia: gcsf started code: dnr sepsis" infection, source, elevated lactate off pressors this AM septic physiology has resolved dispo: inpt, icu Subjective: case d/w dr estrada Objective: Vital Signs Temp Pulse Resp BP Pulse Ox 36.8 C 84 14 100/57 L 95 04/20/18 14:06 04/20/18 12:27 04/20/18 12:27 04/20/18 12:27 04/20/18 12:27 Microbiology 04/19/18 10:00 - Final Sputum, Expectorated Laboratory Results 04/20/18 04:50 04/20/18 04:50 04/19/18 04/20/18 04/21/18 05:59 05:59 05:59 Intake Total 4930 2080 450 Output Total 1775 2500 450 Balance 3155 -420 0 PT 14.8 SEC (12.0-15.0) 04/18/18 13:37 INR 1.14 (0.83-1.16) 04/18/18 13:37 - Physical Exam Constitutional: no apparent distress, chronically ill appearing Eyes: PERRL, anicteric sclera Ears, Nose, Mouth, Throat: moist mucous membranes, hearing normal Cardiovascular: regular rate and rhythym, no murmur, rub, or gallop Respiratory: no respiratory distress, no rales or rhonchi Gastrointestinal: normoactive bowel sounds, soft, non-tender abdomen Genitourinary: no bladder fullness, No sevilla in urethra Skin: warm Musculoskeletal: No full muscle strength Neurologic: AAOx3 ICD10 Worksheet Patient Problems: Problems Problem Status Onset Pneumonia Acute Inguinal hernia Acute
[2018-04-21] MEDS: CEFEPIME HCL 2 GM in NS 100 ML IV SCH ×2 (03:43→17:10)
[2018-04-21] MEDS: IPRATROPIUM/ALBUTEROL 3 ML DEYVIAL IH SCH ×5 (06:03→21:32)
[2018-04-21] MEDS: ACYCLOVIR 200 MG CAP PO SCH (08:21)
[2018-04-21] MEDS: PANTOPRAZOLE SODIUM 40 MG TAB PO SCH (08:21)
[2018-04-21] MEDS: HEPARIN 5,000 UNIT/0.5 ML INJ SC SCH ×2 (08:22→21:49)
--- NOTE | 2018-04-21 09:14 | HOSPPROG ---
Hospitalist Progress Note Assessment/Plan: 67 yo M w multiple myeloma here w febrile neutropenia, adenovirus and RLL pneumonia RLL pneumonia: agree w cefepime s aureus noted, clinically improving, await sensitivities ( icalled micro, should be ready soon) parainfluenza likely etiology but does need treatment of staph repeat cxr today parainfluenza virus: supportive care MM: tolerating current therapy poorly per onc febrile neutropenia: gcsf started code: dnr sepsis: infection, source, elevated lactate off pressors this AM septic physiology has resolved dispo: inpt, may need snf lives alone Subjective: case d/w dr estrada. sputum w staph aureas, sensitivities pe nding. per pt/ot, teeteraing on need for snf. thinks he has airway obstruction Objective: Vital Signs Temp Pulse Resp BP Pulse Ox 36.6 C 72 14 106/63 100 04/21/18 08:46 04/21/18 08:46 04/21/18 08:46 04/21/18 08:46 04/21/18 08:46 Microbiology 04/19/18 10:00 - Final Sputum, Expectorated Laboratory Results 04/20/18 04:50 04/20/18 04:50 04/20/18 04/21/18 04/22/18 05:59 05:59 05:59 Intake Total 2080 1350 Output Total 2500 1350 300 Balance -420 0 -300 PT 14.8 SEC (12.0-15.0) 04/18/18 13:37 INR 1.14 (0.83-1.16) 04/18/18 13:37 - Physical Exam Constitutional: no apparent distress, appears nourished Eyes: PERRL, anicteric sclera Ears, Nose, Mouth, Throat: moist mucous membranes, hearing normal Cardiovascular: regular rate and rhythym, no murmur, rub, or gallop, No tachycardia Respiratory: no respiratory distress, no rales or rhonchi, other (decreased breath sounds on R) Gastrointestinal: normoactive bowel sounds, soft, non-tender abdomen Genitourinary: No sevilla in urethra Skin: warm, normal color Musculoskeletal: No full muscle strength Neurologic: AAOx3 Psychiatric: interacting appropriately ICD10 Worksheet Patient Problems: Problems Problem Status Onset Pneumonia Acute Inguinal hernia Acute
[2018-04-21 11:38] LABS: PLATELET COUNT 102 10^3/uL (150-400)
[2018-04-21] MEDS: ASCORBIC ACID 500 MG TAB PO SCH (12:25)
[2018-04-21] MEDS: CALCIUM CARB W/VIT D 500 MG TAB PO SCH (12:25)
--- NOTE | 2018-04-21 15:05 | SOAPPROG ---
SOAP Progress Note Assessment/Plan: Assessment: - parainfluenza/staph pneumonia - patient is improving. CXR shows improvement today - refractory multiple myeloma - he feels he is tolerating his current regimen ( carfilzimib) poorly. - neutropenia - resolved Plan: - continue current rx. ID input appreciated - discuss with Dr. Guillory possible change/adjustment of therapy as an outpatient. 04/21/18 15:02 Subjective: Breathing feels a little better. C/O pain in back from his kyphosis (chronic) Objective: Vital Signs Temp Pulse Resp BP Pulse Ox 36.8 C 85 14 100/61 95 04/21/18 11:39 04/21/18 11:39 04/21/18 11:39 04/21/18 11:39 04/21/18 11:39 Microbiology 04/19/18 10:00 - Final Sputum, Expectorated Laboratory Results 04/21/18 11:30 04/20/18 04:50 04/19/18 04/20/18 04/21/18 23:59 23:59 23:59 Intake Total 4190 1550 300 Output Total 2700 1750 625 Balance 1490 -200 -325 PT 14.8 SEC (12.0-15.0) 04/18/18 13:37 INR 1.14 (0.83-1.16) 04/18/18 13:37 Physical Exam - Physical Exam General Appearance: moderate distress Respiratory: rales (R>L lung), wheezing (R lung) Cardiac/Chest: regular rate, rhythm Skin: pallor Neuro/Psych: alert, oriented x 3 ICD10 Worksheet Patient Problems: Problems Problem Status Onset Pneumonia Acute Inguinal hernia Acute
[2018-04-21] MEDS: FILGRASTIM-SNDZ 300 MCG/0.5 ML SYR SC SCH (15:10)
[2018-04-21] MEDS: ACETAMINOPHEN 325 MG TAB PO PRN (15:28)
[2018-04-22] MEDS: CEFEPIME HCL 2 GM in NS 100 ML IV SCH ×2 (04:07→16:25)
[2018-04-22 05:59] LABS: PLATELET COUNT 101 10^3/uL (150-400)
[2018-04-22] MEDS: IPRATROPIUM/ALBUTEROL 3 ML DEYVIAL IH SCH ×4 (06:26→21:03)
[2018-04-22] MEDS: HEPARIN 5,000 UNIT/0.5 ML INJ SC SCH ×2 (08:20→21:20)
[2018-04-22] MEDS: ACYCLOVIR 200 MG CAP PO SCH (08:20)
[2018-04-22] MEDS: PANTOPRAZOLE SODIUM 40 MG TAB PO SCH (08:20)
[2018-04-22] MEDS: ASCORBIC ACID 500 MG TAB PO SCH (12:38)
[2018-04-22] MEDS: CALCIUM CARB W/VIT D 500 MG TAB PO SCH (12:38)
--- NOTE | 2018-04-22 15:46 | WOCRNPDOC ---
WOCRN Advanced Assessment Note - Skin Integrity Problem, Advanced Assess Right Lower Arm Dressing Type: Adaptic Touch, Gauze Dressing Description: Clean/Dry, Intact Exudate Amount: Scant Exudate Characteristic(s): Serosanguinous Integumentary Issue Intervention: Dressing Changed, Dressing Initialed & Dated [place] Wound Tissue: Contused Site Measurement - Head-to-Toe Length X Width X Depth (cm): 1.3x5x0.1 Skin Integrity Problem Comment: Category 3 skin tear. Clean wound bed. No concerns. Cleaned with ns. Wound gel to wound bed. Covered with Cutimed siltec sorbact dressing. Education with patient re: care plan. All questions answered. Reported to Mann BRAUN. Wound care will sign off. Right Elbow Pressure Injury Dressing Type: Open to Air Site Measurement - Head-to-Toe Length X Width X Depth (cm): 0.5x2x0 Pressure Injury Stage: Stage 1 Pressure Injury Present on Admit: No Skin Integrity Problem Comment: Patient uses this elbow to reposition much more than the other elbow. The pressure injury is a linear shaped wound of unknow cause. Discussed offloading with patient. Heelbo offloading pads for elbows sent down. Education with patient on use and awareness re: elastic bands on either side that may be too tight and can be cut if necessary. Reported to Mann.
--- NOTE | 2018-04-22 16:02 | HOSPPROG ---
Hospitalist Progress Note Assessment/Plan: 67 yo M w multiple myeloma here w febrile neutropenia, adenovirus and RLL pneumonia RLL pneumonia: agree w cefepime day 5 is 04/23 MSSA- would consider 7-10 days total abx given that he presented w neutropenia cxr 04/21 w improved airspace disease(interp by me) parainfluenza virus: supportive care MM: tolerating current therapy poorly per onc febrile neutropenia: gcsf started code: dnr sepsis: infection, source, elevated lactate off pressors this AM septic physiology has resolved dispo: inpt, may need snf lives alone 04/22- will have PT re eval today he refuses to go to [facility] based on previous experiences; will consider alternatives Subjective: sputum cx w MSSA. teetering on need for SNF Objective: Vital Signs Temp Pulse Resp BP Pulse Ox 37.0 C 86 20 123/67 H 93 04/22/18 15:12 04/22/18 15:12 04/22/18 15:12 04/22/18 15:12 04/22/18 15:12 Microbiology 04/22/18 10:30 Gastrointestinal Tract Panel (PCR) - Final Stool No Organism Detected By Pcr 04/19/18 10:00 - Final Sputum, Expectorated Sputum Culture - Final Staphylococcus Aureus Laboratory Results 04/22/18 05:52 04/20/18 04:50 04/21/18 04/22/18 04/23/18 05:59 05:59 05:59 Intake Total 1350 750 Output Total 1350 433 175 Balance 0 317 -175 PT 14.8 SEC (12.0-15.0) 04/18/18 13:37 INR 1.14 (0.83-1.16) 04/18/18 13:37 - Physical Exam Constitutional: no apparent distress, chronically ill appearing Eyes: PERRL, anicteric sclera Ears, Nose, Mouth, Throat: moist mucous membranes, hearing normal Cardiovascular: regular rate and rhythym, no murmur, rub, or gallop Respiratory: no respiratory distress, no rales or rhonchi Gastrointestinal: normoactive bowel sounds, soft, non-tender abdomen Genitourinary: No sevilla in urethra Skin: warm, normal color Musculoskeletal: No full muscle strength ICD10 Worksheet Patient Problems: Problems Problem Status Onset Pneumonia Acute Inguinal hernia Acute
--- NOTE | 2018-04-22 16:09 | ASMTCMCOM ---
CM Note CM Note Notes: CM met with pt to discuss discharge plan. Pt reports that he wants information on unskilled RN care. CM to provide information. PT recommending home; OT recommending SNF. MD notified CM pt may need SNF. Pt reports he will not go to [facility], may consider alternative facilities. CM to follow. Plan: HHC vs SNF. Date Signed: 04/22/2018 04:08 PM Electronically Signed By:EVELINA Stephens
[2018-04-22] MEDS: ACETAMINOPHEN 325 MG TAB PO PRN (18:42)
--- NOTE | 2018-04-22 20:09 | SOAPPROG ---
SOAP Progress Note Assessment/Plan: Assessment: Patient is a 67 year old with history of multiple myeloma admitted for septic shock from parainfluenza and staph aurues #Septic Shock secondary to CAP Improving clinically, on room air, no cough, CXR improving, off pressors -continue clinical course of antibiotics (cefepime) #Neutropenic fever Secondary to CAP, received growth factor, no longer neutropenic #Refractory multiple myeloma - he feels he is tolerating his current regimen ( carfilzimib) poorly. This was discussed with his outpatient oncologist to perhaps be tweaked as outpatient #Diarrhea Perhaps kyprolis related or secondary to antibiotics, GI infection panel negative -immodium PRN, #Skin tear on right forearm -Recommend wound care consult Will continue to follow Subjective: patient reports feeling okay. no real cough or SOB. No systemic symptoms. He is curious about plan for skin tear on right forearm Objective: Vital Signs Temp Pulse Resp BP Pulse Ox 37.0 C 79 18 123/67 H 93 04/22/18 15:12 04/22/18 16:14 04/22/18 16:14 04/22/18 15:12 04/22/18 16:14 Microbiology 04/22/18 10:30 Gastrointestinal Tract Panel (PCR) - Final Stool No Organism Detected By Pcr 04/19/18 10:00 - Final Sputum, Expectorated Sputum Culture - Final Staphylococcus Aureus Laboratory Results 04/22/18 05:52 04/20/18 04:50 04/21/18 04/22/18 04/23/18 05:59 05:59 05:59 Intake Total 1350 750 150 Output Total 1350 433 300 Balance 0 317 -150 PT 14.8 SEC (12.0-15.0) 04/18/18 13:37 INR 1.14 (0.83-1.16) 04/18/18 13:37 General: chronically ill appearing male in no distress, non toxic HEENT: PERRL, no icterus or pallor, oral mucosa is moist NECK: supple CV: RRR without rubs thrills or gallops Chest: Decreased breath sounds throughout, no adventitial sounds Abdomen: soft nontender Extremities: linear area of denuded skin with old blood and surround ecchymosis Neuro: alert and oriented, CN II-XII grossly intact ICD10 Worksheet Patient Problems: Problems Problem Status Onset Pneumonia Acute Inguinal hernia Acute
[2018-04-23] MEDS: CEFEPIME HCL 2 GM in NS 100 ML IV SCH (03:55)
[2018-04-23] MEDS: IPRATROPIUM/ALBUTEROL 3 ML DEYVIAL IH SCH ×4 (06:19→20:22)
[2018-04-23] MEDS: HEPARIN 5,000 UNIT/0.5 ML INJ SC SCH ×2 (08:45→21:06)
[2018-04-23] MEDS: ACYCLOVIR 200 MG CAP PO SCH (08:46)
[2018-04-23] MEDS: PANTOPRAZOLE SODIUM 40 MG TAB PO SCH (08:46)
--- NOTE | 2018-04-23 10:00 | HOSPPROG ---
Hospitalist Progress Note Assessment/Plan: #MSSA CAP: narrow to Ancef; stop 04/25. (7 days given severity of illness, neutropenia) #Parainfluenza: supportive care #MM: tolerating current therapy poorly per onc #Neutropenic fever: gcsf started #Sepsis: required pressors #Pancytopenia: no transfusion indication code: dnr Subjective: weak with standing Objective: Vital Signs Temp Pulse Resp BP Pulse Ox 36.5 C 70 20 106/64 100 04/23/18 07:51 04/23/18 07:51 04/23/18 07:51 04/23/18 07:51 04/23/18 07:51 Microbiology 04/22/18 10:30 Gastrointestinal Tract Panel (PCR) - Final Stool No Organism Detected By Pcr 04/19/18 10:00 - Final Sputum, Expectorated Sputum Culture - Final Staphylococcus Aureus Laboratory Results 04/22/18 05:52 04/20/18 04:50 04/22/18 04/23/18 04/24/18 05:59 05:59 05:59 Intake Total 750 500 Output Total 433 1020 Balance 317 -520 PT 14.8 SEC (12.0-15.0) 04/18/18 13:37 INR 1.14 (0.83-1.16) 04/18/18 13:37 - Time Spent With Patient Time Spent with Patient: greater than 35 minutes Time Spent with Patient: Greater than 35 minutes spent on this patients care, greater than 50% of time spent counseling, educating, and coordinating care regarding the above mentioned plan. - Physical Exam Constitutional: cachectic Eyes: PERRL Ears, Nose, Mouth, Throat: moist mucous membranes Cardiovascular: regular rate and rhythym Respiratory: no respiratory distress Gastrointestinal: normoactive bowel sounds Genitourinary: no bladder fullness Skin: warm Musculoskeletal: full muscle strength Neurologic: AAOx3, CN II-XII Intact Psychiatric: interacting appropriately ICD10 Worksheet Patient Problems: Problems Problem Status Onset Inguinal hernia Acute Pneumonia Acute
[2018-04-23] MEDS: CALCIUM CARB W/VIT D 500 MG TAB PO SCH (14:31)
[2018-04-23] MEDS: ASCORBIC ACID 500 MG TAB PO SCH (14:31)
[2018-04-23] MEDS: ceFAZolin 2 GM/DEXTROSE 100 ML IV SCH ×2 (14:32→21:07)
[2018-04-23] MEDS: LOPERAMIDE HCL 2 MG CAP PO PRN ×2 (14:42→14:43)
[2018-04-23] MEDS: ACETAMINOPHEN 325 MG TAB PO PRN (16:44)
--- NOTE | 2018-04-23 16:52 | ASMTCMCOM ---
CM Note CM Note Notes: Patient plan of care reviewed in rounds. OT recommending SNF, PT home no needs. Patient is weak and lives alone. Patient refusing HHC at this point. Not yet medically cleared for discharge. May be canidate for outpatient palliative care referral. Text sent to digital project coordinatorcandy roller via [employer]. CM to follow. plan: TBD Date Signed: 04/23/2018 04:51 PM Electronically Signed By:Zara Hare RN
[2018-04-24] MEDS: ACETAMINOPHEN 325 MG TAB PO PRN (01:38)
[2018-04-24] MEDS: ceFAZolin 2 GM/DEXTROSE 100 ML IV SCH ×2 (05:58→14:11)
[2018-04-24] MEDS: IPRATROPIUM/ALBUTEROL 3 ML DEYVIAL IH SCH ×2 (06:05→11:45)
[2018-04-24 09:08] VITALS: BP 125/72
[2018-04-24] MEDS: ACYCLOVIR 200 MG CAP PO SCH (09:38)
[2018-04-24] MEDS: PANTOPRAZOLE SODIUM 40 MG TAB PO SCH (09:38)
[2018-04-24] MEDS: HEPARIN 5,000 UNIT/0.5 ML INJ SC SCH (09:39)
[2018-04-24] MEDS: ASCORBIC ACID 500 MG TAB PO SCH (13:40)
[2018-04-24] MEDS: CALCIUM CARB W/VIT D 500 MG TAB PO SCH (13:41)
--- NOTE | 2018-04-24 13:43 | PDDCSUM ---
Discharge Summary Discharge Summary: This is a 67 yo male with MM who was admitted with sepsis and MSSA CAP. He is now back to baseline and is on RA. Of note, he has generalized weakness and SNF has been recommended by therapies. He has refused SNF. He has also refused HHC He has a right arm skin tear which was treated by wound care. He will f/u with PCP or Oncology next week He has 5 more doses of Keflex DDX: #MSSA CAP: narrow to Ancef; stop 04/25. (7 days given severity of illness, neutropenia) -change to Keflex on discharge #Parainfluenza: supportive care #MM: tolerating current therapy poorly per onc #Neutropenic fever: gcsf started #Sepsis: required pressors #Pancytopenia: no transfusion indication Exam: NAD AAOX3 RRR CTA B S/NT/ND MEDS: SEE MED REC TOTAL TIME SPENT ON D/C IS 35 MINS
--- NOTE | 2018-04-24 14:49 | ASDISCHSUM ---
Discharge Information Plan Status:Home with No Needs Medically Cleared to Leave: Discharge Date: CM D/C Disposition:Home, Routine, Self-Care ADT D/C Disposition:Home, Routine, Self-Care Projected Discharge Date:04/24/2018 12:00 AM Transportation at D/C:Cab Voucher Discharge Delay Reason: Follow-Up Date:04/24/2018 12:00 AM Discharge Slot: Final Diagnosis: Placement Information Patient Contact Information Contact Name:LEE Relationship:Other Address:[address] Work Phone: City:[facility] Phone: State/Zip Code:[place] [address] Email: Financial Information Financial Class:Worker's Compensation Primary Plan Desc: [employer] Primary Plan Number:[id number] Secondary Plan Desc: Secondary Plan Number: Assessment Information [facility] Progress Note CM Note CM Note Notes: Pt is a 67 yo M, usually lives alone and independently, Pt is DNR. Pt has history of multiple myeloma, diagnosed in 2007. Followed by Dr[address] Guillory. Pt presents with fevers and chills. Pt was started on antibiotics. Discharge needs TBD, CM to follow. Plan: TBD Date Signed: 04/19/2018 01:33 PM Electronically Signed By:EVELINA Stephens [facility] CM Progress Note CM Note CM Note Notes: CM met with pt to discuss discharge plan. Pt reports that he wants information on unskilled RN care. CM to provide information. PT recommending home; OT recommending SNF. MD notified CM pt may need SNF. Pt reports he will not go to [facility], may consider alternative facilities. CM to follow. Plan: HHC vs SNF. Date Signed: 04/22/2018 04:08 PM Electronically Signed By:EVELINA Stephens [facility] Progress Note CM Note CM Note Notes: Patient plan of care reviewed in rounds. OT recommending SNF, PT home no needs. Patient is weak and lives alone. Patient refusing HHC at this point. Not yet medically cleared for discharge. May be canidate for outpatient palliative care referral. Text sent to transitional living specialistfarmer cash grain via [employer]. CM to follow. plan: TBD Date Signed: 04/23/2018 04:51 PM Electronically Signed By:Zara Hare RN Case Management Discharge Plan Note Case Management Discharge Discharge Order Complete? Answers: Yes Patient to Obtain Answers: via [employer] Transportation Arranged Answers: Family/Friends Case Management Transport Answers: Yes Form Complete Discharge Comments Notes: CM met with pt, continues to refuse HHC. Pt provided with [employer] and will arrange Meals on Wheels. CM scheduled Cab for pt to get home at 4pm. Pt appreciative of information. Reports no other concerns at this time. Date Signed: 04/24/2018 02:47 PM Electronically Signed By:EVELINA Stephens Intervention Information
--- NOTE | 2018-04-24 14:50 | ASMTLACE ---
LACE Length of stay for Answers: 4-6 days current admission Acuity / Level of Answers: Yes Care: Did the patient have an inpatient admission? Comorbidities - select Answers: Chronic pulmonary disease all that apply Other Notes: Multiple myeloma # of Emergency department Answers: 1-2 visits in the last 6 months Social determinants Answers: Lack of community resources and/or lack of social support (no pcp, lives alone, transportation, daphne d) Score: 15 Date Signed: 04/24/2018 02:49 PM Electronically Signed By:EVELINA Stephens
== END 2018-04-24 16:02 | disposition home or self-care (01) | DRG 871 ==
LOC: EDUNIT# → F2N 17:11 → F1N 04-20 12:14
PROVIDERS: ADMIT Hospitalist; ATTEND Hospitalist
PROC: 05H633Z Insertion of Infusion Device into Left Subclavian Vein, Percutaneous Approach (ICD-10-PCS; principal; 2018-04-18)
DX: A41.01 Sepsis due to Methicillin susceptible Staphylococcus aureus (principal); J12.2 Parainfluenza virus pneumonia; C90.00 Multiple myeloma not having achieved remission; D61.810 Antineoplastic chemotherapy induced pancytopenia; D70.9 Neutropenia, unspecified; E86.9 Volume depletion, unspecified; Z66 Do not resuscitate; E03.9 Hypothyroidism, unspecified; B34.8 Other viral infections of unspecified site; M81.0 Age-related osteoporosis without current pathological fracture; J44.9 Chronic obstructive pulmonary disease, unspecified; M41.9 Scoliosis, unspecified; L89.011 Pressure ulcer of right elbow, stage 1
CPT/HCPCS: 82947-QW; 84484-ER; 92526-GN; 92610-GN; 96365; 97116-GP; 97162-GP; 97166-GO; 97530-GO; 97530-GP; 97535-GO; J0456; J0690; J0692; J0696; J1644; J3010; Q5101

== ENCOUNTER → 2018-08-13 | Outpatient (CLI) | payer OTHER | LOC: FIMAGING 11:59 ==